=== PATIENT | male | born 1990 | race Caucasian/White ===

== ENCOUNTER 2024-09-27 11:27 | Emergency (ER) | payer BC, SELFPAY ==
[2024-09-27 11:28] VITALS: BP 187/102; PULSE 71; RESP 16; TEMP 36.6; O2SAT 100
--- NOTE | 2024-09-27 11:38 | ED.VIS.BACK ---
HPI <BAKARI Martinez - Last Filed: 09/27/24 12:54> History of Present Illness Chief Complaint: Back Narrative Narrative: 34-year-old female states he was shoveling snow earlier this week and had mild right lower back pain. Then over 2 days he was lifting heavy boxes and the back pain worsened. He feels like he gets muscle spasms where it locks up. It hurts with movement of his right leg. He has no pain radiating down into the buttocks or leg, no weakness or numbness or tingling, no saddle anesthesia or bladder bowel incontinence. He went to the chiropractor but it did not help. He has tried Tylenol and ibuprofen. PFSH <BAKARI Martinez Last Filed: 09/27/24 12:54> [facility] Home Medications ?Medication ?Instructions ?Recorded ?Last Taken ?Type cyclobenzaprine 10 mg tablet 10 mg PO BID PRN muscle spasm 7 09/27/24 Unknown Rx days #14 tabs Allergy/AdvReac Type Severity Reaction Status Date / Time No Known Allergies Allergy Verified 09/27/24 11:29 Social History Smoking Status: Never smoker ROS <BAKARI Martinez - Last Filed: 09/27/24 12:54> ROS ED ROS Narrative Constitutional: Negative for fever, chills, malaise. Neuro: Negative for motor/sensory dysfunction. Musc: Negative for joint pain, swelling, trauma. EXAM <BAKARI Martinez Last Filed: 09/27/24 12:54> Physical Exam Narrative Exam Narrative: CONST: Patient sitting in no acute distress. EYES: Normal inspection. NECK: Normal inspection. RESP: No respiratory distress, CTAB. CVS: Regular rate and rhythm, no murmur, no gallop. Back: Normal inspection, no midline or paraspinal tenderness. Reproducible right lower back pain with movement. SKIN: Color normal, no rash, warm, dry, intact. EXTREMITIES: Normal appearance, full range of motion, 5/5 strength in bilateral hip flexion, knee flexion/extension, dorsiflexion/plantarflexion. Normal sensation. 2+ reflexes. 2+ DP pulses. Soft compartments. NEURO: Alert and answering questions appropriately. PSYCH: Normal affect. Const Vital Signs: 09/27/24 11:28 09/27/24 12:32 Temperature 98 F 97.5 F L Temperature Source Oral Pulse Rate 71 82 Respiratory Rate 16 15 Blood Pressure 187/102 H 126/57 H Blood Pressure Mean 130 80 Pulse Ox 100 99 Oxygen Delivery Method Room Air <Dr. Gary Sun DO - Last Filed: 09/29/24 15:07> Physical Exam Const Vital Signs: 09/27/24 11:28 09/27/24 12:32 Temperature 98 F 97.5 F L Temperature Source Oral Pulse Rate 71 82 Respiratory Rate 16 15 Blood Pressure 187/102 H 126/57 H Blood Pressure Mean 130 80 Pulse Ox 100 99 Oxygen Delivery Method Room Air [facility] <Jennifer Conner PA - Last Filed: 09/27/24 12:54> [facility] Narrative Medical decision making narrative: Patient has right lumbar pain that started after shoveling snow and lifting boxes. He feels like his back spasms. He has no radicular pain. He has no red flag signs concerning for cauda equina. He has reproducible right lumbar pain with movement. Lower extremity MSPs and reflexes are intact. Based on history I do not think an x-ray is indicated. He was treated symptomatically with Toradol and Norflex with improvement. He will take [id number] Tylenol, Motrin, and I prescribed Flexeril as needed. He was discharged in stable condition. <Dr. Gary Sun DO - Last Filed: 09/29/24 15:07> [facility] Narrative Medical decision making narrative: Patient has right lumbar pain that started after shoveling snow and lifting boxes. He feels like his back spasms. He has no radicular pain. He has no red flag signs concerning for cauda equina. He has reproducible right lumbar pain with movement. Lower extremity MSPs and reflexes are intact. Based on history I do not think an x-ray is indicated. He was treated symptomatically with Toradol and Norflex with improvement. He will take [id number] Tylenol, Motrin, and I prescribed Flexeril as needed. He was discharged in stable condition. Supervisory Physician Note Patient was seen and examined with the Advanced Practice Provider. Nursing notes and vital signs have been reviewed. Pertinent old records have been reviewed. I agree with the essential elements of the ARMIDA's history, physical exam, assessment, and plan. The differential diagnosis and management options were discussed with the ARMIDA. I participated in determining and agree with the management, procedures, final impression and disposition as documented. See changes noted by me. Please see addendum or separate note for any additional details. Denies numbness, weakness, urinary retention, stool or urinary incontinence, saddle anesthesia, recent invasive manipulation of the spine, intravenous drug use, or fever. States that he had no cracking or manipulation of the spine at the chiropractor. States it was more physical therapy and massage. Has minimal midline spinal tenderness. Patient presents for back pain. There has been no trauma. There is nothing to suggest any infectious etiology. The patient is not an IV drug user. There is no neurologic findings to suggest an acute cauda equina syndrome, infectious etiology, or any acute radiculopathy. At this point I do not feel any emergent imaging such as x-rays or MRI are warranted. Patient symptoms will be treated and patient discharged home. Discharge Plan Triage Chief Complaint: Back ED Midlevel Provider: Jennifer Conner ED Provider: Gary Sun Dx/Rx/DC Orders Clinical Impression: Acute lumbar myofascial strain Instructions: Back Safety: Lifting, ED Back Sprain/Strain Prescriptions: New cyclobenzaprine 10 mg tablet 10 mg PO BID PRN (Reason: muscle spasm) 7 Days Qty: 14 0RF Primary Care Provider: Care Physician,Prema Primary Referrals: NOT,DEFINED [Non-Staff] - Activity Restrictions/Additional Instructions: You can take [id number] Tylenol and ibuprofen every 6 hours to treat your low back strain. Use the muscle relaxers as needed. Follow-up with your primary care doctor. Print Language: Finnish Disposition Disposition: Home, Self Care Discharge Date/Time: 09/27/24 12:33
[2024-09-27] MEDS: Orphenadrine 60 MG/2 ML Ampul IM (12:09)
[2024-09-27] MEDS: Ketorolac 30 MG/ML Syringe IM (12:09)
[2024-09-27 12:32] VITALS: BP 126/57; PULSE 82; RESP 15; TEMP 36.4; O2SAT 99
== END 2024-09-27 12:33 | disposition home or self-care (01) ==
PROVIDERS: Emergency Provider Surgery; Visit Provider Surgery
DX: S39.012A Strain of muscle, fascia and tendon of lower back, initial encounter (principal); X50.0XXA Overexertion from strenuous movement or load, initial encounter
CPT/HCPCS: 96372; 99282